=== PATIENT | male | born 2000 | race Two or more races ===

== ENCOUNTER 2021-05-02 09:40 | Emergency (ER) | payer OTHER ==
[2021-05-02] MEDS ORDERED: LIDOCAINE 1% 10 ML VIAL SQ ONE (10:45)
[2021-05-02] MEDS ORDERED: BACITRACIN 0.9 GM PACKET OINTMENT TP ONE (10:45)
[2021-05-02] MEDS ORDERED: ACETAMINOPHEN 500 MG TABLET PO ONE (10:45)
[2021-05-02] MEDS ORDERED: PERTUSS(ACELL),DIPH,TET VAC/PF 0.5 ML SYRINGE IM. ONE (10:45)
[2021-05-02] MEDS ORDERED: CEPHALEXIN MONOHYDRATE 500 MG CAPSULE PO ONE (11:00)
== END 2021-05-02 12:12 | disposition home or self-care (01) ==
LOC: EMS 09:40
DX: S81.022A Laceration with foreign body, left knee, initial encounter (principal); S61.412A Laceration without foreign body of left hand, initial encounter; S80.211A Abrasion, right knee, initial encounter; X58.XXXA Exposure to other specified factors, initial encounter; Y93.39 Activity, other involving climbing, rappelling and jumping off; Y92.89 Other specified places as the place of occurrence of the external cause; Y99.8 Other external cause status; F17.210 Nicotine dependence, cigarettes, uncomplicated
CPT/HCPCS: 12002; 90471; 90715; 99284; J3490; 12032